=== PATIENT | female | born 1975 | race Caucasian/White ===

== ENCOUNTER → 2017-05-23 | Outpatient (CLI) | payer OTHER | LOC: FIMAGING 12:25 | PROVIDERS: ATTEND Advanced Practice Midwife | DX: O09.522 Supervision of elderly multigravida, second trimester (principal); D25.9 Leiomyoma of uterus, unspecified; Z3A.20 20 weeks gestation of pregnancy ==

== ENCOUNTER 2017-10-12 15:15 | Inpatient (IN) | payer OTHER ==
[2017-10-12] MEDS ORDERED: OLIVE OIL 118 ML BTL MISC PRN (15:35)
[2017-10-12] MEDS ORDERED: OXYTOCIN/NORMAL SALINE 1,000 ML IV PRN (15:35)
[2017-10-12] MEDS ORDERED: EPSOM SALT 454 GM TP PRN (15:35)
[2017-10-12] MEDS ORDERED: MISOPROSTOL 200 MCG TAB PO PRN (15:35)
[2017-10-12] MEDS ORDERED: LR 1,000 ML IV PRN (15:35)
[2017-10-12] MEDS ORDERED: AMMONIA AROMATIC 1 EACH AMP IH PRN (15:35)
[2017-10-12] MEDS ORDERED: LIDOCAINE 1% 300 MG/30 ML SDV SC PRN (15:35)
[2017-10-12] MEDS ORDERED: TERBUTALINE SULFATE 1 MG/ML VIAL IV PRN (15:35)
[2017-10-12 16:14] LABS: PLATELET COUNT 139 10^3/uL (150-400)
--- NOTE | 2017-10-12 16:17 | PDGENHP ---
History and Physical - Chief Complaint regular contractions - History of Present Illness 42 at 40w2d by 7 wk US with unknown LMP presents with regular contractions since 1100 today. Good FM, has had some bloody show over the past 2 d since cervix check and membrane stripping in office 2 d ago. No LOF. No ssx PIH. course c/b: AMA - neg Innatal screen, nl level II US at 20 and 32 wk - fibroid 6x7cm anteriorly Rubella immunity low Mild anemia. labs: 11.4 / 33.1 plt 177 A pos Ab scre neg RPR - NR Rub low immune HepBsAg - neg HIV - neg Std panel - neg GC - neg afp- neg 1 hr GTT 78 11.5/33.2 at 28wk GBS neg History Information - Allergies/Home Medication List Allergies/Adverse Reactions: No Known Allergies Allergy (Unverified 06/15/15 09:51) I have personally reviewed and updated: family history, medical history, social history, surgical history - Past Medical History no pertinent PMH - Surgical History Reports: no pertinent surgical hx - Social History Smoking Status: Never smoked Alcohol Use: None Drug Use: None Review of Systems Review of Systems: Physical Exam Physical Exam:
[2017-10-12] MEDS ORDERED: LIDOCAINE 1% 300 MG/30 ML SDV ONE (16:18)
[2017-10-12] MEDS ORDERED: MISOPROSTOL 200 MCG TAB ONE (16:19)
[2017-10-12] MEDS ORDERED: OLIVE OIL 118 ML BTL ONE (16:19)
[2017-10-12] MEDS ORDERED: TERBUTALINE SULFATE 1 MG/ML VIAL ONE (16:19)
[2017-10-12] MEDS ORDERED: OXYTOCIN 10 UNIT/ML VIAL ONE (16:19)
[2017-10-12] MEDS ORDERED: AMMONIA AROMATIC 1 EACH AMP IH ONE (16:19)
[2017-10-12] MEDS: IBUPROFEN 600 MG TAB PO PRN (18:20)
[2017-10-12] MEDS ORDERED: DOCUSATE SODIUM 100 MG CAP PO PRN (18:35)
[2017-10-12] MEDS ORDERED: HYDROCORTISONE 0.5% CREAM TP PRN (18:35)
[2017-10-12] MEDS ORDERED: ACETAMINOPHEN 325 MG TAB PO PRN (18:35)
[2017-10-12] MEDS ORDERED: SIMETHICONE 80 MG TAB CHEW PO PRN (18:35)
--- NOTE | 2017-10-12 18:45 | OBDEL ---
Info Type: Vaginal Presentation at Delivery: Vertex L&D Analgesia/Anesthesia Type: None GBS+: No Intrapartum Medications: Generic Name Dose Route Start Last Admin Trade Name Freq PRN Reason Stop Dose Admin Oxytocin/Sodium Chloride 1,000 mls @ 0 mls/hr 10/12/17 15:35 10/12/17 17:35 Pitocin 20 Units/Ns (Premix) IV 1,000 mls PRN PRN Administration Post- bleeding As Directed Ibuprofen 600 mg 10/12/17 15:35 10/12/17 18:20 Motrin PO 04/10/18 15:34 600 mg Q6HRS PRN Administration post , inflammation Misoprostol 800 - 1,000 mcg 10/12/17 15:35 10/12/17 17:45 Cytotec PO 04/10/18 15:34 800 mcg ONCE PRN Administration Vaginal Atony/Bleeding - Hospital Course Intrapartum: 10/12/17 18:37 Pt arrived in active labor, was in the tub and delivered in the tub. I was called from [facility] the [facility] and arrived within a minute of delivery. Indications for Delivery: Spontaneous Labor Vaginal Delivery - Delivery Provider Delivery Physician/CNM: Kelsey Liu - Labor and Delivery Onset of Contractions Date: 10/12/17 Onset of Contractions Time: 11:00 Rupture of Membranes Date: 10/12/17 Rupture of Membranes Time: 17:13 Dilation Complete Date: 10/12/17 Dilation Complete Time: 17:13 Placenta Delivery Date: 10/12/17 Placenta Delivery Time: 17:27 Total Hours of Labor: 6 Vaginal Sponge Count Correct: Yes Vaginal Needle Count Correct: Yes Vaginal Sweep Performed: Yes EBL: 1000 Delivery Events: None Delivery Comment: I was called from another delivery and arrived within a minute - pt was in the tub with baby on her chest. At pt's request - waited until the cord stopped pulsing prior to clamping and cutting it. SCAR Hernandez, took baby and performed skin to skin, while I assisted pt to the bed. About 700ml of blood was expelled with fundal massage. With gentle traction on the cord, and pt pushing, placenta was delivered and uterine atony was noted. 1000mg misoprostil was placed rectally. Examination revealed no lacerations. EBL was 1000ml - after weighing associated chux pads. Pt tolerated all quite well, and baby was back on maternal chest when I left the room. - Medications Labor Augmentation/Induction Methods Used: None [place] Data SAMIA: 10/10/17 Gestational Age: 40 week(s) and 2 day(s) Packer Delivery Date: 10/12/17 Delivery Time: 17:13 Sex of : Female Score (1 Min): 8 Score (5 Min): 9 ICD10 Worksheet Patient Problems: Problems Problem Status Onset Normal labor Acute Vaginal delivery Acute
[2017-10-13] MEDS: IBUPROFEN 600 MG TAB PO PRN ×3 (00:06→12:13)
[2017-10-13 08:28] VITALS: BP 115/67
--- NOTE | 2017-10-13 09:46 | OBGCSDC ---
General Delivery Information - General Info : 2 Para: 2 Abortions: 0 Type: Vaginal L&D Analgesia/Anesthesia Type: None Admission Date: 10/12/17 Labs: Patient ABO/Rh A POSITIVE 10/12/17 15:58 Hct 38.6 % (38.0-47.0) 10/12/17 15:58 - Hospital Course Intrapartum: 10/12/17 18:37 Pt arrived in active labor, was in the tub and delivered in the tub. I was called from [facility] and arrived within a minute of delivery. : 10/13/17 09:43 S) Pt doing well, reports min pain and bleeding. she is ambulating and voiding without difficulty. She is . She desires discharge home today. O) VSS, afebrile constitutional: WNWF, A&Ox3 HEENT: normocephalic, atraumatic, supple Heart: RRR, No murmur Chest: CTA-B Abdomen: Soft, nontender Uterus: Firm at U-2, right deviation( bladder full ) Lochia: Minimal rubra Perineum: Intact, healing well Extremities: Trace edema, and negative Piotr's sign Neuro: Grossly normal A) 32-year-old S/P , PPH (1000mL) PPD#1 presumptive anemia (pt declines blood draw) P) Discharge home today >24hrs cont PO iron BID Continue Pelvic rest x6wks Discussed danger signs (infection, preeclampsia, depression, heavy bleeding, etc ) RTO in 2/4/6 weeks 10/13/17 09:45 Vaginal - Delivery Provider Delivery Physician/CNM: Kelsey Liu - Diagnosis Delivery Events: None - Delivery EBL: 1000 [place] Data SAMIA: 10/10/17 Gestational Age: 40 week(s) and 3 day(s) Packer Delivery Date: 10/12/17 Delivery Time: 17:13 Sex of Infant: Female [place] Weight (gm): 0 g Score (1 Min): 8 Score (5 Min): 9 Discharge Information - Discharge Information Condition: Good Instruction/Follow Up: Two Weeks, Four Weeks, Six Weeks
== END 2017-10-13 18:30 | disposition home or self-care (01) | DRG 775 ==
LOC: FLD 15:15 → FOB 20:38
PROVIDERS: ADMIT Hospitalist; ATTEND Hospitalist
PROC: 10E0XZZ Delivery of Products of Conception, External Approach (ICD-10-PCS; principal; 2017-10-12)
DX: O80 Encounter for full-term uncomplicated delivery (principal); Z37.0 Single live birth; Z3A.40 40 weeks gestation of pregnancy
CPT/HCPCS: J2590; J3105

== ENCOUNTER 2017-10-31 22:07 | Emergency (ER) | payer OTHER ==
[2017-10-31] MEDS ORDERED: NS 1,000 ML IV ONE (22:18)
--- NOTE | 2017-10-31 22:24 | EDPHY ---
H & P Stated Complaint: bleeding s/p delivery - Personal History LMP (Females 10-55): Irregular Current Tetanus Diphtheria and Acellular Pertussis (TDAP): Yes - Medical/Surgical History Hx Asthma: No Hx Chronic Respiratory Disease: No Hx Diabetes: No Hx Cardiac Disease: No Hx Renal Disease: No Hx Cirrhosis: No Hx Alcoholism: No Hx HIV/AIDS: No Hx Splenectomy or Spleen Trauma: No Other PMH: - Social History Smoking Status: Never smoked Time Seen by Provider: 10/31/17 22:14 Constitutional: Initial Vital Signs Temperature (C) 37 C 10/31/17 22:09 Heart Rate 75 10/31/17 22:09 Respiratory Rate 16 10/31/17 22:09 Blood Pressure 107/70 10/31/17 22:09 O2 Sat (%) 99 10/31/17 22:09 O2 Delivery Mode Room Air Allergies/Adverse Reactions: No Known Allergies Allergy (Unverified 10/31/17 22:08) Home Medications: Medication Instructions Recorded Docusate Sodium [Colace 100 MG (*)] 100 mg PO BID PRN #0 cap 06/17/15 Iron Polysacch/Iron Heme Polyp 28 mg PO DAILY #60 tab 06/17/15 [Bifera] Ibuprofen [Motrin (*)] 600 mg PO Q6 PRN #30 tab 10/13/17 Medical Decision Making - Diagnostics Imaging Results: Imaging Impressions Pelvic/Renal Ultrasound 10/31/17 22:18 Impression: 1. Highly suspicious for retained products of conception. 2. Normal ovaries. No free fluid or adnexal mass. Findings discussed with Emergency Department physician, Dr. Mena Larsen at 10/31/2017 23:39. ED Course/Re-evaluation: CHIEF COMPLAINT: hemorrhage HISTORY OF PRESENT ILLNESS: 42-year-old female who had a vaginal delivery 2 and half weeks ago. Post delivery she had slight amount of cramping and then some bleeding. The bleeding was not severe but continued steadily and she had an ultrasound done by Dr. Nelida Harper on Tuesday. The ultrasound showed a possible retained products verses a blood clot. She was given Methergine. She took the Methergine and stopped yesterday. She had no bleeding from Tuesday till yesterday. She then started bleeding heavily today soaking a pad every 0.5 hr to an hour. She is not lightheaded and dizzy. She has abdominal cramping but no fevers or chills. REVIEW OF SYSTEMS: A 10 point review of systems was performed and is negative with the exception of the elements mentioned in the history of present illness. PHYSICAL EXAM: HR, BP, O2 Sat, RR. Temp noted General Appearance: Alert, well hydrated, appropriate, and non-toxic appearing. Head: Atraumatic without scalp tenderness or obvious injury Eyes: Pupils equal, round, reactive to light and accommodation, EOMI, no trauma , no injection. Ears: Clear bilaterally, no perforation, normal landmarks Nose: Atraumatic, no rhinorrhea, clear. Throat: There is no erythema or exudates, no lesions, normal tonsils, mucus membranes moist. Neck: Supple, 2+ carotid upstroke, nontender, no lymphadenopathy. Respiratory: No retractions, no distress, no wheezes, and no accessory muscle use. Lungs are clear to auscultation bilaterally. Cardiovascular: Regular rate and rhythm, no murmurs, rubs, or gallops. Bilateral carotid, radial, dorsalis pedis, and posterior tibial pulses intact. Good capillary refill all extremities. Gastrointestinal: Abdomen is soft, nontender, non-distended, no masses, no rebound, no guarding, no peritoneal signs. Musculoskeletal: Normal active ROM of all extremities, atraumatic. Neurological: Alert, appropriate, and interactive. The patient has normal DTRs and non-focal cranial nerves, motor, sensory, and cerebellar exam. Skin: No rashes, good turgor, no nodules on palpation. Past medical history: Noncontributory Past surgical history: Noncontributory Family history: Noncontributory Social history: , recent vaginal delivery, does not abuse tobacco drugs or alcohol DIAGNOSTICS/PROCEDURES/CRITICAL CARE TIME: Study: Ultrasound of the: Pelvis Indication: vaginal bleeding rule out retained products Results: US scan of the pelvis was obtained. The results of the study: Will be signed out to Dr. Larsen at shift change to interpret the results and discussed with Dr. Harper DIFFERENTIAL DIAGNOSIS: The differential diagnosis for the patient's vaginal bleeding included but was not limited to menses, retained products, vaginal trauma, normal bleeding MEDICAL DECISION MAKING: This patient is hemodynamically stable. She had an ultrasound on Tuesday which revealed potential for retained products but it was not clear. She responded well to Methergine treatment and then started bleeding heavily again this morning. CBC, chemistry, PT PTT and type and screen are pending. This patient is not passing out. Ultrasound is also pending. We will call Dr. Nelida Harper with the ultrasound results as she may need to perform a D&C this evening. This patient will be turned over to Dr. Mena Larsen at change of shift. (Tc Hickman) 12:00 a.m.- The patient had ultrasound performed which did show a thickened endometrial stripe at 16 mm and signs of retained products of conception. I consulted with Dr. Harper who has reviewed the ultrasound. She spoke with the patient over the phone and they have decided for outpatient D and C tomorrow morning. She will be discharged from the emergency department. (Mena Larsen) - Data Points Laboratory Results: Laboratory Results 10/31/17 22:24 10/31/17 22:24 10/31/17 10/31/17 10/31/17 22:24 22:24 22:24 WBC RBC Hgb Hct MCV MCH MCHC RDW Plt Count MPV Neut % (Auto) Lymph % (Auto) Reynolds % (Auto) Eos % (Auto) Baso % (Auto) Nucleat RBC Rel Count Absolute Neuts (auto) Absolute Lymphs (auto) Absolute Monos (auto) Absolute Eos (auto) Absolute Basos (auto) Absolute Nucleated RBC Immature Gran % Immature Gran # PT 13.4 SEC SEC (12.0-15.0) INR 1.00 (0.83-1.16) APTT 30.5 SEC SEC (23.0-38.0) Sodium 136 mEq/L mEq/L (135-145) Potassium 4.3 mEq/L mEq/L (3.5-5.2) Chloride 101 mEq/L mEq/L (97-110) Carbon Dioxide 27 mEq/l mEq/l (22-31) Anion Gap 8 mEq/L mEq/L (8-16) BUN 13 mg/dL mg/dL (7-23) Creatinine 0.9 mg/dL mg/dL (0.6-1.0) Estimated GFR > 60 Glucose 101 mg/dL H mg/dL (70-100) Calcium 8.3 mg/dL L mg/dL (8.5-10.4) Patient ABO/Rh A POSITIVE Antibody Screen NEGATIVE 10/31/17 22:24 WBC 7.16 10^3/uL 10^3/uL (3.80-9.50) RBC 3.63 10^6/uL L 10^6/uL (4.18-5.33) Hgb 11.6 g/dL L g/dL (12.6-16.3) Hct 34.4 % L % (38.0-47.0) MCV 94.8 fL fL (81.5-99.8) MCH 32.0 pg pg (27.9-34.1) MCHC 33.7 g/dL g/dL (32.4-36.7) RDW 11.7 % % (11.5-15.2) Plt Count 240 10^3/uL 10^3/uL (150-400) MPV 9.3 fL fL (8.7-11.7) Neut % (Auto) 51.1 % % (39.3-74.2) Lymph % (Auto) 38.3 % % (15.0-45.0) Reynolds % (Auto) 7.4 % % (4.5-13.0) Eos % (Auto) 2.5 % % (0.6-7.6) Baso % (Auto) 0.6 % % (0.3-1.7) Nucleat RBC Rel Count 0.0 % % (0.0-0.2) Absolute Neuts (auto) 3.66 10^3/uL 10^3/uL (1.70-6.50) Absolute Lymphs (auto) 2.74 10^3/uL 10^3/uL (1.00-3.00) Absolute Monos (auto) 0.53 10^3/uL 10^3/uL (0.30-0.80) Absolute Eos (auto) 0.18 10^3/uL 10^3/uL (0.03-0.40) Absolute Basos (auto) 0.04 10^3/uL 10^3/uL (0.02-0.10) Absolute Nucleated RBC 0.00 10^3/uL 10^3/uL (0-0.01) Immature Gran % 0.1 % % (0.0-1.1) Immature Gran # 0.01 10^3/uL 10^3/uL (0.00-0.10) PT INR APTT Sodium Potassium Chloride Carbon Dioxide Anion Gap BUN Creatinine Estimated GFR Glucose Calcium Patient ABO/Rh Antibody Screen Medications Given: Discontinued Medications Sodium Chloride (Ns) 1,000 mls @ 0 mls/hr IV ONCE ONE; Wide Open PRN Reason: Protocol Stop: 10/31/17 22:19 Last Admin: 10/31/17 22:30 Dose: 1,000 mls Departure - Departure Disposition: Home, Routine, Self-Care Clinical Impression: Retained products of conception with hemorrhage Condition: Good Instructions: Bleeding (ED) Additional Instructions: Please follow-up with Dr. Harper as planned. Referrals: Nleida Harper MD [Medical Doctor] - As per Instructions
[2017-10-31 22:42] LABS: PLATELET COUNT 240 10^3/uL (150-400)
[2017-10-31 23:42] VITALS: BP 110/62
== END 2017-11-01 00:10 | disposition home or self-care (01) ==
DX: O72.2 Delayed and secondary postpartum hemorrhage (principal); E86.9 Volume depletion, unspecified

== ENCOUNTER 2017-11-01 08:14 | Observation (INO) | payer OTHER ==
[2017-10-31 22:51] LABS: PROTIME(PATIENT) 13.4 SEC (12.0-15.0)
--- NOTE | 2017-11-01 08:52 | PDHPUP ---
History & Physical Update H&P update statement: This history and physical update is based on an assessment of the patient which was completed after admission or registration (within 24 hours), but prior to the surgery/procedure. Pt is 42 y/o s/p 2 1/2 weeks with c/o heavy VB, with clots. Pt was given Methergine for suspected retained POCs about 1 week ago for thickened endometrium on u/s measuring about 2 cm. Pt then presented to ED last pm with worsening bleeding and large-sized clots. Having intermittent back pain and mild cramping. Denies any f/c/n/v/CP or SOB. She is . Ultrasound done in ED demonstrated uterus measuring 12x7 cm with thickened endometrium measuring 16 mm. Pt desires definitive treatment and wants to proceed with suction D&C. Discussed R/B/A with pt including but not limited to bleeding, infection and risk of uterine perforation. Pt understands all risks of the surgery and wants to proceed. Abx television picture tube rebuilder to [place]-Ancef which is safe with . SCDs for DVT prophylaxis. H&P update: no change in patient's condition since H&P completed, changes noted
[2017-11-01] MEDS ORDERED: ceFAZolin 2 GM/SWFI 2 GM/20 ML SYR IVP ONE (09:00)
[2017-11-01] MEDS ORDERED: PROPOFOL 200 MG/20 ML VIAL ONE (09:22)
[2017-11-01] MEDS ORDERED: ONDANSETRON 4 MG/2 ML VIAL ONE (09:22)
[2017-11-01] MEDS ORDERED: fentaNYL 100 MCG/2 ML INJ ONE ×3 (09:22→10:52)
[2017-11-01] MEDS ORDERED: LIDOCAINE 2% 5 ML SDV ONE (09:29)
[2017-11-01] MEDS ORDERED: METHYLERGONOVINE MAL 0.2 MG/ML INJ ONE (09:40)
--- NOTE | 2017-11-01 09:44 | PREANESOB ---
Obstetric Pre-Anesthesia Info - General Info Proposed Procedure: D&C - Labor Status Magnesium Sulfate in Use: No Labor Epidural: No Anesthesia Allergies/Adverse Reactions: Allergy/AdvReac Type Severity Reaction Status Date / Time No Known Allergies Allergy Unverified 10/31/17 22:08 Home Medications: Medication Instructions Recorded Docusate Sodium [Colace 100 MG (*)] 100 mg PO BID PRN #0 cap 06/17/15 Iron Polysacch/Iron Heme Polyp 28 mg PO DAILY #60 tab 06/17/15 [Bifera] Ibuprofen [Motrin (*)] 600 mg PO Q6 PRN #30 tab 10/13/17 Visit Medications: Discontinued Medications Generic Name Dose Route Start Last Admin Trade Name Freq PRN Reason Stop Dose Admin Fentanyl Confirm 11/01/17 09:22 Sublimaze Administered 11/01/17 09:23 Dose 100 mcg .ROUTE .STK-MED ONE Cefazolin Sodium 2 gm in 20 mls @ 200 mls/hr 11/01/17 09:00 11/01/17 09:21 Cefazolin Syringe IVP 11/01/17 09:05 20 mls ONCALL ONE Administration Lidocaine HCl Confirm 11/01/17 09:29 Xylocaine-Mpf 2% Vial Administered 11/01/17 09:30 Dose 5 ml .ROUTE .STK-MED ONE Methylergonovine Maleate Confirm 11/01/17 09:40 Methergine Administered 11/01/17 09:41 Dose 0.2 mg .ROUTE .STK-MED ONE Ondansetron HCl Confirm 11/01/17 09:22 Zofran Administered 11/01/17 09:23 Dose 4 mg .ROUTE .STK-MED ONE Propofol Confirm 11/01/17 09:22 Diprivan Administered 11/01/17 09:23 Dose 200 mg .ROUTE .STK-MED ONE - Anesthesia History Response to Local Anesthetics: Normal Anesthesia & Operative History: No Prior Problems Family Anesthesia History: Negative - Social History Substance Use/Abuse: Denies - Vital Signs Latest Vital Signs (Nursing): Temp Pulse Resp BP Pulse Ox 36.6 C 75 18 91/63 L 95 11/01/17 08:24 11/01/17 08:24 11/01/17 08:24 11/01/17 08:24 11/01/17 08:24 Height/Weight (Nursing): Height 167.64 cm Weight 65.771 kg - Focused Exam Neck exam: FROM Mallampati Score: Class 2 Mouth exam: normal dental/mouth exam Pulmonary: no respiratory distress, no rales or rhonchi, clear to auscultation Cardiovascular: regular rate and rhythym, no murmur, rub, or gallop - Plan Anesthetic Plan: GA/LMA Consent Signed and on Chart: Yes Patient/Guardian Understands and Agrees to Plan: Yes
[2017-11-01] MEDS ORDERED: MISOPROSTOL 200 MCG TAB ONE (09:48)
[2017-11-01] MEDS ORDERED: LR 500 ML IV PRN (09:50)
[2017-11-01] MEDS ORDERED: PHENYLEPHRINE HCL 100 MCG/ML SYR IVP PRN (09:50)
[2017-11-01] MEDS ORDERED: HYDROCODONE/APAP 5/325 TAB PO PRN ×2 (09:50→17:13)
[2017-11-01] MEDS ORDERED: epHEDrine SULFATE 10 MG/ML SYR IVP PRN (09:50)
[2017-11-01] MEDS ORDERED: ONDANSETRON 4 MG/2 ML VIAL IVP PRN (09:50)
[2017-11-01] MEDS ORDERED: ACETAMINOPHEN 500 MG TAB PO PRN (09:50)
[2017-11-01] MEDS ORDERED: NALOXONE HCL 0.4 MG/ML INJ IVP PRN (09:50)
[2017-11-01] MEDS ORDERED: PROMETHAZINE HCL 25 MG/ML INJ IVP PRN (09:50)
--- NOTE | 2017-11-01 10:36 | POSTOPPROG ---
Post Op Note Date of Operation: 11/01/17 Surgeon: Nata León Floor Person: None Anesthesiologist: Kenroy Martin Anesthesia: LMA Pre-op Diagnosis: bleeding, retained placenta on u/s Post-op Diagnosis: bleeding, retained placenta on u/s Indication: s/p with bleeding 2.5 weeks with retained placenta Procedure: Suction D&C under u/s guidance Findings: Uterus sounded to 11 cm; cervix 2-3cm; active bleeding; lg amt tissue noted Inf/Abcess present in the surg proc area at time of surgery?: No Depth: Organ Space EBL: 100-500 (400 cc with clots; excessive bleeding noted after sharp curettage. Pt given 1000mcg Cytotec SD. Unsure about perforation-procedure performed under u/s guidance with what appeared to be thin lining, but with blod clots in uterus; bladder emptied with 100 cc clear urine under u/s guidance as well. Pt hemodynamically stable throughout the procedure.) Total fluids administered: 1500 cc LR UO: 100 cc clear urine at end Complications: None Specimen(s): Endometrial curettings - retained placental fragments
--- NOTE | 2017-11-01 10:41 | POSTANESTH ---
Post Anesthetic Evaluation Cardiovascular Status: Normal, Stable Respiratory Status: Normal, Stable Level of Consciousness/Mental Status: Can Participate in Eval Pain Control: Adequate, Prn Tx Ordered Nausea/Vomiting Control: Adequate, Prn Tx Ordered Complications Possibly Related to Anesthesia: None Noted
[2017-11-01] MEDS: fentaNYL 100 MCG/2 ML INJ IVP PRN ×2 (10:54→11:24)
[2017-11-01] MEDS: IBUPROFEN 600 MG TAB PO PRN ×2 (13:56→20:39)
--- NOTE | 2017-11-01 14:01 | GOP ---
[f rep st] OPERATIVE REPORT DATE OF OPERATION: 11/01/2017 SURGEON: Nata León DO ELECTRIC KNIFE OPERATOR: None. ANESTHESIA: LMA. ANESTHESIOLOGIST: Kenroy Chen. PREOPERATIVE DIAGNOSIS: 2 weeks' with vaginal bleeding and clots; retained placenta; failed medical treatment. POSTOPERATIVE DIAGNOSIS: 2 weeks' with vaginal bleeding and clots; retained placenta; failed medical treatment. PROCEDURE PERFORMED: Suction dilation and curettage under ultrasound guidance. FINDINGS: On bimanual exam, a [id number] anteverted, mobile uterus noted. The cervix is dilated to approximately 2-3 cm. Multiple blood clots in the vagina with active bleeding. Upon inspection of the speculum, active bleeding noted with multiple blood clots. The uterus gently sounded to 11 cm. Cervix was dilated about 2-3 cm. A curved size 11 suction curette was used. A large amount of tissue was obtained. The procedure was done under ultrasound guidance. All specimens sent to Pathology. SPECIMENS: Endometrial curettings, retained placental fragments. ESTIMATED BLOOD LOSS: 400 cc with clots. INDICATIONS: The patient is a 3, para 2-0-1-2, status post a precipitous vaginal delivery about 2-1/2 weeks ago, who presents with complaints of continuous vaginal bleeding. She had an ultrasound about a week ago showing a thickened lining, and was given Methergine for 48 hours. She states she passed a few clots, and had some cramping. She then presented to the ER last night with heavier vaginal bleeding, large clots, and abdominal pelvic cramping. Patient denies any fevers, chills, nausea, or vomiting. Ultrasound does show a thickened lining at 16-18 mm, suspicious for retained placenta. Discussed with the patient that having failed medical treatment, next step is to proceed with surgery for definitive treatment. The patient agrees with the plan. Discussed risks, benefits, alternatives of the procedure including but not limited to bleeding, infection, and risk of uterine perforation. The patient understands all risks at this time and wants to proceed. The patient was properly consented. DESCRIPTION OF PROCEDURE: The patient was taken to the operating room where anesthesia was administered. She was then positioned in the dorsal lithotomy position, prepped and draped in the normal sterile fashion. Once anesthetic was found to be adequate, bimanual exam was performed with findings noted above. Next, an open-ended speculum was placed in the vagina. The anterior lip of cervix was grasped with an Allis clamp, and due to the patient already being dilated approximately 2-3 cm, no cervical dilation was needed. Uterus was then gently sounded to 11 cm and a size 10 curved suction curette was used and connected to suction. It was placed in the cervix, and advanced up in the uterus gently, and a suction curettage was performed under ultrasound guidance. 2-3 passes were made with the suction curettage until all tissue appeared to be removed and a thin stripe was observed on ultrasound. Next, we then turned our attention to a sharp curettage. This was performed under ultrasound guidance, and was done in all 4 quadrants until a gritty texture was noted. At this time, there was noted to be bright red bleeding with clots. On ultrasound, it looked as if the uterus had filled with blood and/ or clots. The patient was given Cytotec 1000 mcg per rectum. At this time, unsure if there was a perforation. The suction curette was then passed one final time under ultrasound guidance with removal of all debris, blood, and clots. The bladder was emptied by straight cath for about 100 cc of clear urine. This was visualized under ultrasound and was noted to be bladder that was drained. Bleeding had slowed down and minimal. All instruments were then removed from the vagina. The cervix appeared to be hemostatic. A second bimanual exam was performed and uterus had decreased in size. Again, minimal bleeding noted. The patient tolerated the procedure. No complications. Sponge, instrument and lap counts correct x 2. The patient was then taken to the recovery room in stable condition. She will be monitored in the PACU for several hours. The patient did receive 2 g of Ancef prior to the procedure. She will follow up in the office in 2 weeks once stable for discharge. IV FLUIDS: 1500 cc LR. URINE OUTPUT: About 100 cc of clear urine at the end of the procedure. COMPLICATIONS: None noted. /[id number]/MODL MTDD
[2017-11-01] MEDS ORDERED: ONDANSETRON DISINTEGRATING 4 MG TAB PO PRN (17:13)
[2017-11-01] MEDS ORDERED: BISACODYL 10 MG SUPP PR PRN (17:14)
[2017-11-01] MEDS ORDERED: MAGNESIUM HYDROXIDE 30 ML UDCUP PO PRN (17:14)
[2017-11-01] MEDS ORDERED: LACTULOSE 20 GM/30 ML UDCUP PO PRN (17:14)
[2017-11-01] MEDS ORDERED: POLYETHYLENE GLYCOL 3350 17 GM PKT PO PRN (17:14)
[2017-11-01] MEDS ORDERED: SODIUM FERRIC GLUCONAT/SUCROSE 125 MG in NS 100 ML IV ONE (17:15)
[2017-11-01] MEDS ORDERED: HYDROCORTISONE 0.5% CREAM TP PRN (17:16)
[2017-11-01] MEDS: LR 1,000 ML IV SCH ×2 (17:50→19:28)
[2017-11-01] MEDS: METHYLERGONOVINE MAL 0.2 MG TAB PO SCH ×2 (18:12→23:45)
[2017-11-01] MEDS: SENNOSIDES/DOCUSATE SODIUM TAB PO SCH (20:40)
[2017-11-02] MEDS: IBUPROFEN 600 MG TAB PO PRN ×2 (02:43→10:39)
[2017-11-02] MEDS: LR 1,000 ML IV SCH (03:14)
[2017-11-02] MEDS: METHYLERGONOVINE MAL 0.2 MG TAB PO SCH ×3 (06:02→18:23)
[2017-11-02] MEDS: SENNOSIDES/DOCUSATE SODIUM TAB PO SCH ×2 (10:38→22:54)
--- NOTE | 2017-11-02 12:56 | OBPROG ---
Labor Progress Note Assessment/Plan: Assessment: 42 yo POD#1 s/p D&C for retained POC 2.5 weeks after delivery, with significant loss of blood. Symptomatic anemia approximately 24 hours after procedure. Plan: Transfuse 2 u PRBC. B/R/A of no transfusion, of 1 unit, and of 2 units discussed with patient. Mutually agreed to proceed with a 2 u transfusion of PRBC. Written informed consent obtained. Kelsey Liu MD, FACOG 11/02/17 13:06 Subjective/Intrapartum Course: 11/02/17 13:13 - Mislabeled - not intrapartum, but postop Pt doing well, though admits to dizziness when up to the bathroom, and extreme fatigue. Minimal bleeding. Does not feel like she could walk up the stairs by herself due to weakness. 11/02/17 13:31 Objective: 11/02/17 06:10 Patient ABO/Rh A POSITIVE 10/31/17 22:24 Temp Pulse Resp BP Pulse Ox 36.7 C 69 18 108/56 L 94 11/02/17 06:20 11/02/17 06:20 11/02/17 06:20 11/02/17 06:20 11/01/17 21:12 Orthostatic: lying 101/51 71, sitting 95/50 82 standing 94/55 90 Gen - pleasant, pale female, NAD CV - RRR chest - CTAB abd - fundus NT at U-2 ext - calves NT ICD10 Worksheet Patient Problems: Problems Problem Status Onset Retained products of conception with hemorrhage Acute - ICD10 Problem Qualifiers (1) Retained products of conception with hemorrhage
[2017-11-02] MEDS ORDERED: ACETAMINOPHEN 325 MG TAB PO ONE (19:46)
--- NOTE | 2017-11-02 20:03 | SOAPPROG ---
SOAP Progress Note Assessment/Plan: Assessment: 42 yo POD#1 s/p D&C for retained POC 2.5 weeks after delivery, with significant loss of blood. Symptomatic anemia approximately 24 hours after procedure. Plan: Transfuse 2 u PRBC. B/R/A of no transfusion, of 1 unit, and of 2 units discussed with patient. Mutually agreed to proceed with a 2 u transfusion of PRBC. Written informed consent obtained. Kelsey Liu MD, FACOG 11/02/17 13:06 11/02/17 19:53 A: 42 yo POD#1 s/p D&C for retained POC, anemia, and now s/p atypical transfusion reaction, P: Long discussion - will proceed with transfusion as originally planned earlier today - desires 2 units, despite slight rise in H/H Will check CBC in AM. Pt is , and there is concern with a drop in milk production, with severe anemia due to acute blood loss. Discussed that her repeat H/H after receiving only a small portion of one unit of PRBC increased slightly to above the standard transfusion range, but clinically a transfusion is still indicated. Reviewed recommendations from pathologist - and will give premeds - Benedryl and Tylenol, replace her IV line in a different location, and use a blood warmer for the the transfusion. Objective: Vital Signs Temp Pulse Resp BP Pulse Ox 36.9 C 75 18 113/56 L 95 11/02/17 13:50 11/02/17 13:50 11/02/17 09:30 11/02/17 13:50 11/02/17 09:30 Laboratory Results 11/02/17 18:10 11/01/17 11/02/17 11/03/17 05:59 05:59 05:59 Intake Total 1000 Output Total 304 Balance 696 PT 13.4 SEC (12.0-15.0) 10/31/17 22:24 INR 1.00 (0.83-1.16) 10/31/17 22:24 ICD10 Worksheet Patient Problems: Problems Problem Status Onset Retained products of conception with hemorrhage Acute - ICD10 Problem Qualifiers (1) Retained products of conception with hemorrhage
[2017-11-02] MEDS ORDERED: CALCIUM CARBONATE 500 MG CHEWABLE TAB PO PRN (22:32)
[2017-11-03] MEDS: METHYLERGONOVINE MAL 0.2 MG TAB PO SCH (01:00)
--- NOTE | 2017-11-03 07:12 | SOAPPROG ---
SOAP Progress Note Assessment/Plan: Assessment: 42 yo POD#1 s/p D&C for retained POC 2.5 weeks after delivery, with significant loss of blood. Symptomatic anemia approximately 24 hours after procedure. Plan: Transfuse 2 u PRBC. B/R/A of no transfusion, of 1 unit, and of 2 units discussed with patient. Mutually agreed to proceed with a 2 u transfusion of PRBC. Written informed consent obtained. Kelsey Liu MD, FACOG 11/02/17 13:06 11/02/17 19:53 A: 42 yo POD#1 s/p D&C for retained POC, anemia, and now s/p atypical transfusion reaction, P: Long discussion - will proceed with transfusion as originally planned earlier today - desires 2 units, despite slight rise in H/H Will check CBC in AM. Pt is , and there is concern with a drop in milk production, with severe anemia due to acute blood loss. Discussed that her repeat H/H after receiving only a small portion of one unit of PRBC increased slightly to above the standard transfusion range, but clinically a transfusion is still indicated. Reviewed recommendations from pathologist - and will give premeds - Benedryl and Tylenol, replace her IV line in a different location, and use a blood warmer for the the transfusion. 11/03/17 07:08 A/P: 42 yo POD#2 s/p D&C, acute anemia, and now s/p 2 u transfusion - feeling much better today. CBC not believable this morning - will repeat, and then anticipate dc home Kelsey Liu MD, FACOG Subjective: Pt feeling well this morning, not lightheaded or dizzy when up walking around any more. Minimal bleeding - like spotting. Objective: Vital Signs Temp Pulse Resp BP Pulse Ox 37.1 C 66 18 118/61 94 11/03/17 00:56 11/03/17 00:56 11/03/17 00:56 11/03/17 00:56 11/02/17 21:15 Laboratory Results 11/03/17 06:12 11/02/17 11/03/17 11/04/17 05:59 05:59 05:59 Intake Total 1000 Output Total 304 Balance 696 PT 13.4 SEC (12.0-15.0) 10/31/17 22:24 INR 1.00 (0.83-1.16) 10/31/17 22:24 gen - pleasant, NAD abd - NT, fundus firm and NT ext - calves nontender - Time Spent With Patient Time Spent With Patient: 10 min this morning - Pending Discharge Pending Discharge Within 24 Hours: Yes Pending Discharge Within 48 Hours: Yes Pending Discharge Date: 11/04/17 Pending Discharge Time: 11:00 ICD10 Worksheet Patient Problems: Problems Problem Status Onset Retained products of conception with hemorrhage Acute - ICD10 Problem Qualifiers (1) Retained products of conception with hemorrhage
[2017-11-03 07:14] VITALS: BP 115/73
--- NOTE | 2017-11-03 09:21 | SOAPPROG ---
SOAP Progress Note Assessment/Plan: Assessment: PPD 3 wks, POD 2 s/p D and C, severe anemia and transfusions. stable and VS normal continued anemia - rec iron Plan: d/c home, RTC 3 wks 11/03/17 09:10 Subjective: Pt doing well. No dizziness and amb well. BF fine and no longer having cramps. minimal bleeding. no perineal soreness. hydrating well. Objective: Vital Signs Temp Pulse Resp BP Pulse Ox 37.0 C 93 16 115/73 93 11/03/17 07:13 11/03/17 07:13 11/03/17 07:13 11/03/17 07:13 11/03/17 07:13 Laboratory Results 11/03/17 07:43 11/02/17 11/03/17 11/04/17 05:59 05:59 05:59 Intake Total 1000 Output Total 304 Balance 696 PT 13.4 SEC (12.0-15.0) 10/31/17 22:24 INR 1.00 (0.83-1.16) 10/31/17 22:24 Physical Exam - Physical Exam General Appearance: WD/WN Abdomen: non-tender, soft Pelvic Exam: vaginal bleeding (normal lochia) Skin: normal color, warm/dry Extremities: non-tender, pedal edema (minimal) Neuro/Psych: alert, normal mood/affect ICD10 Worksheet Patient Problems: Problems Problem Status Onset Retained products of conception with hemorrhage Acute S/P dilation and curettage Acute Transfusion reaction Acute - ICD10 Problem Qualifiers (1) S/P dilation and curettage (2) Transfusion reaction
== END 2017-11-03 09:15 | disposition home or self-care (01) ==
LOC: FOBOP 08:14 → OBSVTOIN 17:12 → FLD 17:12 → INTOOBSV 17:12 → FLD 17:49
PROVIDERS: ADMIT Obstetrics & Gynecology; ATTEND Obstetrics & Gynecology
PROC: 30233N1 Transfusion of Nonautologous Red Blood Cells into Peripheral Vein, Percutaneous Approach (ICD-10-PCS; principal; 2017-11-01)
PROC: BU46YZZ Ultrasonography of Uterus using Other Contrast (ICD-10-PCS; principal; 2017-11-01)
PROC: 10D17ZZ Extraction of Products of Conception, Retained, Via Natural or Artificial Opening (ICD-10-PCS; principal; 2017-11-01)
DX: O72.2 Delayed and secondary postpartum hemorrhage (principal); O90.81 Anemia of the puerperium
CPT/HCPCS: G0378; J0690; J1200; J2210; J2405; J2704; J2916; J3010; P9016